=== PATIENT | female | born 1980 | race Caucasian/White ===

== ENCOUNTER 2021-05-12 09:26 | Emergency (ER) | payer OTHER ==
[2021-05-12 09:32] VITALS: BP 131/87; PULSE 95; TEMP 98; BMI 22.8
[2021-05-12 10:33] LABS: ALBUMIN 3.9 g/dl (3.4-5.0); BILIRUBIN,TOTAL 0.9 mg/dl (0.2-1); CALCIUM 9.4 mg/dl (8.5-10); CREATININE 0.5 mg/dl (0.55-1.3); MAGNESIUM 1.6 mg/dL (1.8-2.4); TOT PROT 6.7 g/dl (6.4-8.2)
[2021-05-12 12:38] LABS: BASO % 0.4 % (0-2.0); EOS % 1.1 % (0-4.5); HEMATOCRIT 39.2 % (32.4-45.2); HEMOGLOBIN 13.6 GM/dL (10.7-15.3); LYMPH % 24.2 % (8-40); MCH 32.1 pg (25.7-33.7); MCHC 34.8 g/dl (32.0-36.0); MEAN CELL VOLUME 92.4 fl (80-96); MEAN PLT VOLUME 8.2 fl (7.5-11.1); MONO % 10.2 % (3.8-10.2); NEUT % 64.1 % (42.8-82.8); PLATELET COUNT 274 10^3/uL (134-434); RBC 4.24 M/mm3 (3.60-5.2); RDW 12.2 % (11.6-15.6)
== END 2021-05-12 11:30 | disposition home or self-care (01) ==
LOC: FER 09:26
DX: R00.2 Palpitations (principal); E05.90 Thyrotoxicosis, unspecified without thyrotoxic crisis or storm
CPT/HCPCS: 36415; 71046-TC-FY; 80053; 83735; 84436; 84443; 84481; 84484; 85025; 93005; 99285-25; C9803; U0003; U0005